=== PATIENT | female | born 1985 | race African-American/Black ===

== ENCOUNTER 2019-02-15 17:09 | Emergency (ER) | payer SELFPAY ==
[~2019-02-15] VITALS: Ht 167.6 cm; Wt 80.0 kg
[2019-02-15 18:01] LABS: CLARITY URINE CLEAR (CLEAR); COLOR URINE YELLOW (YELLOW); KETONES URINE TRACE (NEGATIVE); LEUKOCYTE ESTERASE URINE NEGATIVE (NEGATIVE); NITRITE URINE NEGATIVE (NEGATIVE); OCCULT BLOOD URINE NEGATIVE (NEGATIVE); PH URINE >=9.0 (4.5-8.0); PROTEIN URINE TRACE (NEGATIVE); SPECIFIC GRAVITY URINE 1.028 (1.005-1.030)
[2019-02-15 18:24] LABS: BASOPHILS % 0.6 % (0.0-2.0); CHLORIDE 105 mEq/L (98-107); EOSINOPHILS % 1.5 % (0.0-5.0); HEMATOCRIT. 38.1 % (36.0-48.0); HEMOGLOBIN. 12.9 g/dL (12.0-16.0); LYMPHOCYTES % 22.4 % (20.0-50.0); MEAN CORPUSCULAR HEMOGLOBIN 29.1 pg (28.0-32.0); MEAN PLATELET VOLUME 9.1 fl (7.4-10.4); MONOCYTES % 12.3 % (2.0-8.0); NEUTROPHILS % 63.2 % (40.0-76.0); PLATELET 240 x1000/uL (130-400); RED BLOOD CELL COUNT 4.43 mill/uL (4.2-5.4); RED CELL DISTRIBUTION WIDTH 13.6 % (11.6-14.6)
[2019-02-15] MEDS ORDERED: ACETAMINOPHEN 325MG TABLET PO ONE (18:30)
[2019-02-15 18:48] LABS: B-HCG QUANTITATIVE 6260 mIU/mL (<3)
[2019-02-15 20:06] VITALS: BP 113/72
== END 2019-02-15 21:10 | disposition home or self-care (01) ==
LOC: ER 17:09
DX: O20.0 Threatened abortion (principal); O99.611 Diseases of the digestive system complicating pregnancy, first trimester; R35.0 Frequency of micturition; O99.331 Smoking (tobacco) complicating pregnancy, first trimester; Z87.891 Personal history of nicotine dependence; Z3A.01 Less than 8 weeks gestation of pregnancy
CPT/HCPCS: 36415; 76801; 81003; 81025; 84702; 86850; 86900; 99284

== ENCOUNTER 2022-06-12 16:39 | Emergency (ER) | payer MEDICAID ==
[~2022-06-12] VITALS: Ht 167.6 cm; Wt 91.0 kg
[2022-06-12 17:03] VITALS: BP 129/105
[2022-06-12] MEDS ORDERED: FLUORESCEIN SODIUM 1MG/STRIP RIGHTEYE ONE (20:45)
[2022-06-12] MEDS ORDERED: TETRACAINE 0.5% OPHTH DROPS 4ML RIGHTEYE ONE (21:00)
[2022-06-12] MEDS ORDERED: ERYT1OIN6 RIGHTEYE (22:14)
== END 2022-06-12 22:31 | disposition home or self-care (01) ==
LOC: ER 16:39
DX: H10.31 Unspecified acute conjunctivitis, right eye (principal); Z98.890 Other specified postprocedural states
CPT/HCPCS: 99283

== ENCOUNTER 2023-03-21 18:21 | Emergency (ER) | payer MEDICAID, OTHER ==
[~2023-03-21] VITALS: Ht 167.6 cm; Wt 89.0 kg
[~2023-03-21 18:21] MED LIST: ERYT1OIN6 RIGHTEYE
[2023-03-21 18:28] VITALS: BP 128/78; PULSE 87; RESP 16; O2SAT 99
[2023-03-21 19:43] LABS: BASOPHILS % 0.8 % (0.0-2.0); EOSINOPHILS % 1.3 % (0.0-5.0); HEMATOCRIT. 37.5 % (36.0-48.0); HEMOGLOBIN. 12.4 g/dL (12.0-16.0); LYMPHOCYTES % 27.4 % (20.0-50.0); MEAN CORPUSCULAR HEMOGLOBIN 27.9 pg (28.0-32.0); MEAN CORPUSCULAR HGB CONC 33.2 g/dL (31.0-37.0); MEAN CORPUSCULAR VOLUME 84.2 fL (81.0-99.0); MEAN PLATELET VOLUME 8.6 fl (7.4-10.4); MONOCYTES % 12.4 % (2.0-8.0); NEUTROPHILS % 58.1 % (40.0-76.0); PLATELET 266 x1000/uL (130-400); RED BLOOD CELL COUNT 4.45 mill/uL (4.2-5.4); RED CELL DISTRIBUTION WIDTH 15.3 % (11.6-14.6); WHITE BLOOD COUNT 7.4 x1000/uL (4.5-11.0)
[2023-03-21 19:52] LABS: CHLORIDE 106 mEq/L (98-107); INDEX HEMOLYSI 1 (1-3); INDEX ICTERIC 1 (1-4); INDEX LIPEMIC 1 (1-3); POTASSIUM 3.2 mEq/L (3.5-5.1); SODIUM 137 mEq/L (136-145)
[2023-03-21 20:01] LABS: ALANINE AMINOTRANSFERASE 96 IU/L (13-61); ALBUMIN 3.7 g/dL (3.4-5.0); ASPARTATE AMINOTRANSFERASE 91 IU/L (15-37); BILIRUBIN TOTAL 0.5 mg/dL (0.1-1.0); CALCIUM 8.9 mg/dL (8.5-10.1); CARBON DIOXIDE 22 mEq/L (21-32); CREATININE 0.7 mg/dL (0.6-1.3); GLUCOSE 88 mg/dL (70-105); PROTEIN TOTAL 7.9 g/dL (6.0-8.3); UREA NITROGEN BLOOD 10 mg/dL (7-21)
[2023-03-21 20:04] LABS: NT PRO B-TYPE NATRIURETIC PEP < 5 pg/mL (5-125); TROPONIN I HIGH SENSITIVITY < 4 ng/L (<54)
[2023-03-21] MEDS ORDERED: ACETAMINOPHEN 325MG TABLET PO ONE (21:45)
[2023-03-21] MEDS ORDERED: MAGNESIUM/ALUMINUM HYDROXIDE/SIMETHICONE 30ML UDC PO ONE (21:45)
[2023-03-21] MEDS ORDERED: PANTOPRAZOLE 40MG DR TABLET PO ONE (21:45)
[2023-03-21] MEDS ORDERED: MAG-55 MT (21:46)
[2023-03-21] MEDS ORDERED: TOPUD MT (21:46)
[2023-03-21] MEDS ORDERED: PROT40 MT (21:46)
[2023-03-21 22:04] VITALS: TEMP 98.2
== END 2023-03-21 22:11 | disposition home or self-care (01) ==
LOC: ER 20:55
DX: R07.89 Other chest pain (principal); Z98.890 Other specified postprocedural states
CPT/HCPCS: 36415; 71045; 80053; 83880; 84484; 85025; 85379; 93005; 99285